=== PATIENT | male | born 1955 | race Caucasian/White ===

== ENCOUNTER → 2018-01-23 | Outpatient (REF) | payer OTHER, MEDICAID ==
[2018-01-23 13:49] LABS: MALB URINE SIEMENS 19.9 MG/L; MAU/CREAT RATIO 13.7 MCG/MG (0.0-30.0)
[2018-01-23 14:04] LABS: ALBUMIN 3.8 GM/DL (3.2-5.2); ALBUMIN/GLOBULIN RATIO 1.19 (1.00-1.93); ALKALINE PHOSPHATASE 122 U/L (45-117); ALT/SGPT 24 U/L (12-78); ANION GAP 6 MEQ/L (8-16); AST/SGOT 14 U/L (7-37); BILIRUBIN,TOTAL 0.5 MG/DL (0.2-1.0); BLOOD UREA NITROGEN 19 MG/DL (7-18); CALCIUM LEVEL 9.4 MG/DL (8.8-10.2); CARBON DIOXIDE LEVEL 29 MEQ/L (21-32); CHLORIDE LEVEL 103 MEQ/L (98-107); CHOLESTEROL LEVEL 223 MG/DL (<200); CHOLESTEROL RISK RATIO 4.372 (<5); CREATININE FOR GFR 1.09 MG/DL (0.70-1.30); GLOMERULAR FILTRATION RATE > 60.0 (>49); GLUCOSE, FASTING 394 MG/DL (70-100); HDL CHOLESTEROL 51 MG/DL (>40); NON-HDL-C 172 MG/DL; POTASSIUM SERUM 4.6 MEQ/L (3.5-5.1); SODIUM LEVEL 138 MEQ/L (136-145); TRIGLYCERIDES LEVEL 115 MG/DL (<150)
[2018-01-23 14:59] LABS: ESTIMATED AVERAGE GLUCOSE 301 MG/DL (60-110); HEMOGLOBIN A1c 12.1 %
== END ==
LOC: M LAB REF 12:15
DX: E11.9 Type 2 diabetes mellitus without complications (principal)

== ENCOUNTER 2018-06-03 11:05 | Emergency (ER) | payer OTHER, MEDICAID ==
[2018-06-03] MEDS: ONDANSETRON 4 MG ORAL DISINTEGRATING TAB (Q0162 PER 1MG) PO (11:41)
[2018-06-03] MEDS: MORPHINE 2 MG/ML 1ML SYRINGE (J2270) IM (11:43)
== END 2018-06-03 13:59 | disposition home or self-care (01) ==
LOC: M ED 11:05
DX: S79.911A Unspecified injury of right hip, initial encounter (principal); S89.91XA Unspecified injury of right lower leg, initial encounter; W01.0XXA Fall on same level from slipping, tripping and stumbling without subsequent striking against object, initial encounter; Y92.018 Other place in single-family (private) house as the place of occurrence of the external cause; E11.9 Type 2 diabetes mellitus without complications; F33.9 Major depressive disorder, recurrent, unspecified; Z95.5 Presence of coronary angioplasty implant and graft; Z88.0 Allergy status to penicillin; Z79.899 Other long term (current) drug therapy; Z79.82 Long term (current) use of aspirin; Z79.84 Long term (current) use of oral hypoglycemic drugs; Z87.891 Personal history of nicotine dependence
CPT/HCPCS: Q0162

== ENCOUNTER → 2018-12-22 | Outpatient (REF) | payer OTHER ==
[~2018-12-22] MED LIST: ASPI1CHW2 PO; ATOR1TAB21 PO; BASA100I SC; BIOFTAB PO; GLIP5TAB8 PO; INSUDET SC; INSUH10VL SC; INSULANT SC; MELO15TA28 PO; METF10004 PO; OMEP20CA3 PO; OMEP40CA2 PO; PERC5TAB12 PO; VITA-110 PO
== END ==
LOC: M LAB REF 10:13
PROVIDERS: ATTEND Otolaryngology
DX: D23.21 Other benign neoplasm of skin of right ear and external auricular canal (principal)

== ENCOUNTER 2018-12-25 11:51 | Day surgery (SDC) | payer OTHER ==
[~2018-12-25] VITALS: Ht 177.8 cm; Wt 82.5 kg
[~2018-12-25 11:51] MED LIST changes: +NS 1,000 ML IV ONE
[2018-12-25] MEDS ORDERED: PROPOFOL 200 MG/20 ML VIAL As Ordered ONE (13:39)
[2018-12-25] MEDS ORDERED: LIDOCAINE 2% INJ 100 MG/5 ML SDV (FOR ANES.) As Ordered ONE (13:55)
--- NOTE | 2018-12-25 14:25 | ROOR ---
Patient Name: Hira Oseguera Procedure Date: 12/25/2018 2:02 PM Date of : 1955 Age: 63 Room: [facility] Gender: Male Note Status: Finalized Procedure: Upper Endoscopy + Biopsies Indications: Heartburn, Exclusion of William's esophagus Providers: Hector Sanchez MD Referring MD: IVORY MCHUGH Requesting Provider: Medicines: Monitored Anesthesia Care Complications: No immediate complications. Procedure: Pre-Anesthesia Assessment: - The heart rate, respiratory rate, oxygen saturations, blood pressure, adequacy of pulmonary ventilation, and response to care were monitored throughout the procedure. The Endoscope was introduced through the mouth, and advanced to the second part of duodenum. The upper GI endoscopy was accomplished without difficulty. The patient tolerated the procedure well. Findings: The Z-line was irregular and was found 35 cm from the incisors. Multiple biopsies were obtained with cold forceps for evaluation to rule out William's Esophagus randomly at the gastroesophageal junction. A medium-sized hiatal hernia was present. Localized minimal inflammation characterized by congestion (edema) and erythema was found in the gastric antrum. Biopsies were taken with a cold forceps for Helicobacter pylori testing. The exam of the duodenum was otherwise normal. Impression: - Z-line irregular, 35 cm from the incisors. - Medium-sized hiatal hernia. - Mucosal changes suspicious for gastritis. Biopsied. - Multiple biopsies were obtained at the gastroesophageal junction. - The examination was otherwise normal. Recommendation: - Patient has a contact number available for emergencies. The signs and symptoms of potential delayed complications were discussed with the patient. Return to normal activities tomorrow. Written discharge instructions were provided to the patient. - High fiber diet. - Discharge patient to home. - Continue present medications. - Await pathology results. - Telephone GI clinic for pathology results in 1 week. - Return to referring physician. - The findings and recommendations were discussed with the patient's family. Hector Sanchez MD Hector Sanchez MD 12/25/2018 2:24:29 PM Electronically signed by Hector Sanchez MD Number of Addenda: 0 Note Initiated On: 12/25/2018 2:02 PM Estimated Blood Loss: Estimated blood loss: none.
[2018-12-25] MEDS ORDERED: PHENYLephrine HCL 500 MCG/5 ML (100MCG/ML) SYRINGE (J2370) As Ordered ONE (14:30)
--- NOTE | 2018-12-25 14:41 | ROOR ---
Patient Name: Hira Oseguera Procedure Date: 12/25/2018 2:04 PM Date of : 1955 Age: 63 Room: [facility] Gender: Male Note Status: Finalized Procedure: Total Colonoscopy to Cecum + Cold Snare Polypectomy Indications: Screening for colorectal malignant neoplasm Providers: Hector Sanchez MD Referring MD: IVORY MCHUGH Requesting Provider: Medicines: Monitored Anesthesia Care Complications: No immediate complications. Procedure: Pre-Anesthesia Assessment: - The heart rate, respiratory rate, oxygen saturations, blood pressure, adequacy of pulmonary ventilation, and response to care were monitored throughout the procedure. The Colonoscope was introduced through the anus and advanced to the cecum, identified by appendiceal orifice and ileocecal valve. The colonoscopy was performed without difficulty. The patient tolerated the procedure well. The quality of the bowel preparation was excellent. Findings: The perianal and digital rectal examinations were normal. Non-bleeding internal hemorrhoids were found during retroflexion. The hemorrhoids were small and Grade I (internal hemorrhoids that do not prolapse). A medium polyp was found at 20 cm proximal to the anus. The polyp was sessile. The polyp was removed with a cold snare. Resection and retrieval were complete. The exam was otherwise without abnormality on direct and retroflexion views. Impression: - Non-bleeding internal hemorrhoids. - One medium polyp at 20 cm proximal to the anus, removed with a cold snare. Resected and retrieved. - The examination was otherwise normal on direct and retroflexion views. - The exam was otherwise normal to the cecum. Recommendation: - Patient has a contact number available for emergencies. The signs and symptoms of potential delayed complications were discussed with the patient. Return to normal activities tomorrow. Written discharge instructions were provided to the patient. - High fiber diet. - Discharge patient to home. - Continue present medications. - Await pathology results. - Telephone GI clinic for pathology results in 1 week. - Repeat colonoscopy in 5 years for surveillance based on pathology results. - Return to referring physician. - The findings and recommendations were discussed with the patient's family. Hector Sanchez MD Hector Sanchez MD 12/25/2018 2:41:44 PM Electronically signed by Hector Sanchez MD Number of Addenda: 0 Note Initiated On: 12/25/2018 2:04 PM Estimated Blood Loss: Estimated blood loss: none.
[2018-12-25 15:15] VITALS: BP 127/77
== END 2018-12-25 15:20 | disposition home or self-care (01) ==
LOC: M OPP 11:51
PROVIDERS: ATTEND Internal Medicine Gastroenterology
DX: D12.6 Benign neoplasm of colon, unspecified (principal); K64.0 First degree hemorrhoids; K22.8 Other specified diseases of esophagus; K44.9 Diaphragmatic hernia without obstruction or gangrene; K31.89 Other diseases of stomach and duodenum; R12 Heartburn; Z12.11 Encounter for screening for malignant neoplasm of colon
CPT/HCPCS: 43239; 45385; 88305; J2370

== ENCOUNTER → 2019-01-11 | Outpatient (REF) | payer OTHER, MEDICAID ==
[~2019-01-11] MED LIST changes: -NS 1,000 ML IV ONE
[2019-01-11 13:50] LABS: HEMOGLOBIN A1c 8.5 %
[2019-01-11 14:06] LABS: ALBUMIN 4.2 GM/DL (3.2-5.2); ALT/SGPT 54 U/L (12-78); BILIRUBIN,TOTAL 0.5 MG/DL (0.2-1.0); BLOOD UREA NITROGEN 20 MG/DL (7-18); CARBON DIOXIDE LEVEL 29 MEQ/L (21-32); CHLORIDE LEVEL 104 MEQ/L (98-107); CHOLESTEROL LEVEL 156 MG/DL (<200); CREATININE FOR GFR 1.05 MG/DL (0.70-1.30); GLOMERULAR FILTRATION RATE > 60.0 (>49); GLUCOSE, FASTING 148 MG/DL (70-100); HDL CHOLESTEROL 52 MG/DL (>40); LDL CHOLESTEROL 86.2 MG/DL (<100); NON-HDL-C 104 MG/DL; POTASSIUM SERUM 4.7 MEQ/L (3.5-5.1); SODIUM LEVEL 138 MEQ/L (136-145); THYROID STIMULATING HORMONE 0.891 uIU/ML (0.358-3.740); TRIGLYCERIDES LEVEL 89 MG/DL (<150)
== END ==
LOC: M LAB REF 12:37
PROVIDERS: ATTEND Family Medicine Addiction Medicine
DX: Z12.11 Encounter for screening for malignant neoplasm of colon (principal); H93.8X1 Other specified disorders of right ear; E11.9 Type 2 diabetes mellitus without complications

== ENCOUNTER → 2019-01-11 | Outpatient (REF) | payer OTHER, MEDICAID ==
[2019-01-11 14:02] LABS: MALB URINE SIEMENS 18.4 MG/L; MAU/CREAT RATIO 13.2 MCG/MG (0.0-30.0)
== END ==
LOC: M LAB REF 12:48
PROVIDERS: ATTEND Family Medicine Addiction Medicine
DX: Z12.11 Encounter for screening for malignant neoplasm of colon (principal); E11.9 Type 2 diabetes mellitus without complications; H93.8X1 Other specified disorders of right ear

== ENCOUNTER → 2019-04-12 | Outpatient (REF) | payer OTHER, MEDICAID ==
[~2019-04-12] MED LIST changes: -OMEP20CA3 PO; +OMEP20CA4 PO
[2019-04-12 13:35] LABS: ALBUMIN 3.9 GM/DL (3.2-5.2); ALT/SGPT 43 U/L (12-78); BILIRUBIN,TOTAL 0.6 MG/DL (0.2-1.0); BLOOD UREA NITROGEN 24 MG/DL (7-18); CALCIUM LEVEL 9.7 MG/DL (8.8-10.2); CARBON DIOXIDE LEVEL 31 MEQ/L (21-32); CHLORIDE LEVEL 105 MEQ/L (98-107); CHOLESTEROL LEVEL 156 MG/DL (<200); CHOLESTEROL RISK RATIO 2.689 (<5); CREATININE FOR GFR 1.11 MG/DL (0.70-1.30); GLOMERULAR FILTRATION RATE > 60.0 (>49); GLUCOSE, FASTING 173 MG/DL (70-100); HDL CHOLESTEROL 58 MG/DL (>40); LDL CHOLESTEROL 84 MG/DL (<100); NON-HDL-C 98 MG/DL; SODIUM LEVEL 141 MEQ/L (136-145); TOTAL PROTEIN 7.1 GM/DL (6.4-8.2); TRIGLYCERIDES LEVEL 68 MG/DL (<150)
[2019-04-12 14:16] LABS: HEMOGLOBIN A1c 8.2 %
== END ==
LOC: M LAB REF 12:31
PROVIDERS: ATTEND Family Medicine Addiction Medicine
DX: E11.9 Type 2 diabetes mellitus without complications (principal)

== ENCOUNTER → 2019-06-19 | Outpatient (REF) | payer OTHER, MEDICAID ==
[2019-06-19 13:17] LABS: BASO % 0.6 % (0.0-1.0); EOS # 0.2 10^3/uL (0.0-0.5); EOS % 3.6 % (0.0-3.0); HEMATOCRIT 45.4 % (42.0-52.0); HEMOGLOBIN 15.5 g/dl (13.5-17.5); LYMPH # 1.9 10^3/uL (1.5-5.0); LYMPH % 28.6 % (24.0-44.0); MEAN CORPUSCULAR HEMOGLOBIN 32.3 pg (27.0-33.0); MEAN CORPUSCULAR HGB CONC 34.1 g/dl (32.0-36.5); MEAN CORPUSCULAR VOLUME 94.6 fl (80.0-96.0); MONO # 0.6 10^3/uL (0.0-0.8); MONO % 8.3 % (0.0-5.0); NEUTROPHILS # 3.9 10^3/uL (1.5-8.5); NEUTROPHILS % 58.3 % (36.0-66.0); PLATELET COUNT, AUTOMATED 214 10^3/uL (150-450); WHITE BLOOD COUNT 6.7 10^3/uL (4.0-10.0)
[2019-06-19 13:49] LABS: ALT/SGPT 53 U/L (12-78); BILIRUBIN,TOTAL 0.8 MG/DL (0.2-1.0); BLOOD UREA NITROGEN 17 MG/DL (7-18); CALCIUM LEVEL 9.6 MG/DL (8.8-10.2); CARBON DIOXIDE LEVEL 31 MEQ/L (21-32); CHLORIDE LEVEL 103 MEQ/L (98-107); CHOLESTEROL LEVEL 132 MG/DL (<200); CHOLESTEROL RISK RATIO 2.237 (<5); CREATININE FOR GFR 1.26 MG/DL (0.70-1.30); GLOMERULAR FILTRATION RATE > 60.0 (>49); GLUCOSE, FASTING 136 MG/DL (70-100); HDL CHOLESTEROL 59 MG/DL (>40); LDL CHOLESTEROL 61 MG/DL (<100); NON-HDL-C 73 MG/DL; POTASSIUM SERUM 4.8 MEQ/L (3.5-5.1); SODIUM LEVEL 140 MEQ/L (136-145); TOTAL 25(OH) VITAMIN D 42.4 NG/ML (30.0-100.0); TOTAL PROTEIN 7.2 GM/DL (6.4-8.2); TRIGLYCERIDES LEVEL 61 MG/DL (<150)
[2019-06-19 14:49] LABS: MALB URINE SIEMENS 13.2 MG/L
== END ==
LOC: M LAB REF 12:22
PROVIDERS: ATTEND Nurse Practitioner Family
DX: Z00.01 Encounter for general adult medical examination with abnormal findings (principal)

== ENCOUNTER → 2020-06-06 | Outpatient (REF) | payer OTHER, MEDICAID ==
[~2020-06-06] MED LIST changes: +OMEP1CAP73 PO; -OMEP20CA4 PO; -OMEP40CA2 PO; +OMEP40CA97 PO
[2020-06-06 13:57] LABS: CREATININE, URINE 63.8 MG/DL; MAU/CREAT RATIO 15.6 MCG/MG (0.0-30.0)
[2020-06-06 14:40] LABS: BASO % 0.4 % (0.0-1.0); EOS # 0.3 10^3/uL (0.0-0.5); EOS % 3.4 % (0.0-3.0); HEMATOCRIT 43.2 % (42.0-52.0); HEMOGLOBIN 14.9 g/dl (13.5-17.5); LYMPH % 25.8 % (24.0-44.0); MEAN CORPUSCULAR HEMOGLOBIN 32.7 pg (27.0-33.0); MEAN CORPUSCULAR HGB CONC 34.5 g/dl (32.0-36.5); MEAN CORPUSCULAR VOLUME 94.7 fl (80.0-96.0); MONO # 0.5 10^3/uL (0.0-0.8); MONO % 6.1 % (0.0-5.0); NEUTROPHILS # 4.9 10^3/uL (1.5-8.5); PLATELET COUNT, AUTOMATED 194 10^3/uL (150-450); RED BLOOD COUNT 4.56 10^6/uL (4.30-6.10); WHITE BLOOD COUNT 7.7 10^3/uL (4.0-10.0)
[2020-06-06 14:50] LABS: ALT/SGPT 66 U/L (12-78); BILIRUBIN,TOTAL 0.4 MG/DL (0.2-1.0); BLOOD UREA NITROGEN 18 MG/DL (7-18); CALCIUM LEVEL 9.6 MG/DL (8.8-10.2); CARBON DIOXIDE LEVEL 27 MEQ/L (21-32); CHLORIDE LEVEL 108 MEQ/L (98-107); CHOLESTEROL LEVEL 146 MG/DL (<200); CHOLESTEROL RISK RATIO 2.561 (<5); CREATININE FOR GFR 0.89 MG/DL (0.70-1.30); GLOMERULAR FILTRATION RATE > 60.0 (>49); GLUCOSE, FASTING 178 MG/DL (70-100); HDL CHOLESTEROL 57 MG/DL (>40); LDL CHOLESTEROL 70 MG/DL (<100); NON-HDL-C 89 MG/DL; POTASSIUM SERUM 4.7 MEQ/L (3.5-5.1); SODIUM LEVEL 140 MEQ/L (136-145); TOTAL PROTEIN 7.1 GM/DL (6.4-8.2); TRIGLYCERIDES LEVEL 93 MG/DL (<150)
== END ==
LOC: M LAB REF 12:22
PROVIDERS: ATTEND Physician Assistant
DX: E11.9 Type 2 diabetes mellitus without complications (principal)

== ENCOUNTER → 2020-08-29 | Outpatient (REF) | payer OTHER, MEDICAID ==
[2020-08-29 12:41] LABS: ALBUMIN 3.6 GM/DL (3.2-5.2); ALT/SGPT 55 U/L (12-78); BILIRUBIN,TOTAL 0.4 MG/DL (0.2-1.0); BLOOD UREA NITROGEN 19 MG/DL (7-18); CALCIUM LEVEL 9.4 MG/DL (8.8-10.2); CARBON DIOXIDE LEVEL 30 MEQ/L (21-32); CHLORIDE LEVEL 105 MEQ/L (98-107); CREATININE FOR GFR 0.95 MG/DL (0.70-1.30); GLOMERULAR FILTRATION RATE > 60.0 (>49); GLUCOSE, FASTING 169 MG/DL (70-100); POTASSIUM SERUM 4.7 MEQ/L (3.5-5.1); SODIUM LEVEL 141 MEQ/L (136-145); TOTAL PROTEIN 6.8 GM/DL (6.4-8.2)
[2020-08-29 13:29] LABS: HEMOGLOBIN A1c 7.7 %
== END ==
LOC: M LAB REF 11:12
PROVIDERS: ATTEND Physician Assistant
DX: E11.10 Type 2 diabetes mellitus with ketoacidosis without coma (principal)

== ENCOUNTER → 2021-01-02 | Outpatient (REF) | payer OTHER ==
[2021-01-02 12:38] LABS: ALBUMIN 4.1 GM/DL (3.2-5.2); ALT/SGPT 48 U/L (12-78); BILIRUBIN,TOTAL 0.9 MG/DL (0.2-1.0); BLOOD UREA NITROGEN 16 MG/DL (7-18); CALCIUM LEVEL 10.6 MG/DL (8.8-10.2); CARBON DIOXIDE LEVEL 29 MEQ/L (21-32); CHLORIDE LEVEL 103 MEQ/L (98-107); CHOLESTEROL LEVEL 129 MG/DL (<200); CHOLESTEROL RISK RATIO 2.303 (<5); CREATININE FOR GFR 0.84 MG/DL (0.70-1.30); GLOMERULAR FILTRATION RATE > 60.0 (>49); GLUCOSE, FASTING 188 MG/DL (70-100); HDL CHOLESTEROL 56 MG/DL (>40); LDL CHOLESTEROL 55 MG/DL (<100); MALB URINE SIEMENS 20.8 MG/L; MAU/CREAT RATIO 12.1 MCG/MG (0.0-30.0); NON-HDL-C 73 MG/DL; POTASSIUM SERUM 4.7 MEQ/L (3.5-5.1); SODIUM LEVEL 139 MEQ/L (136-145); TOTAL PROTEIN 6.9 GM/DL (6.4-8.2); TRIGLYCERIDES LEVEL 88 MG/DL (<150)
[2021-01-02 12:41] LABS: HEMOGLOBIN A1c 7.4 %
== END ==
LOC: M LAB REF 11:12
PROVIDERS: ATTEND Physician Assistant
DX: E11.65 Type 2 diabetes mellitus with hyperglycemia (principal)

== ENCOUNTER → 2021-02-25 | Outpatient (REF) | payer OTHER ==
[2021-02-25 16:55] LABS: BASO % 0.6 % (0.0-1.0); EOS # 0.4 10^3/uL (0.0-0.5); EOS % 5.6 % (0.0-3.0); HEMATOCRIT 44.8 % (42.0-52.0); HEMOGLOBIN 14.7 g/dl (13.5-17.5); LYMPH # 2.3 10^3/uL (1.5-5.0); LYMPH % 35.5 % (24.0-44.0); MEAN CORPUSCULAR HEMOGLOBIN 31.5 pg (27.0-33.0); MEAN CORPUSCULAR HGB CONC 32.8 g/dl (32.0-36.5); MEAN CORPUSCULAR VOLUME 95.9 fl (80.0-96.0); MONO # 0.6 10^3/uL (0.0-0.8); NEUTROPHILS # 3.2 10^3/uL (1.5-8.5); PLATELET COUNT, AUTOMATED 184 10^3/uL (150-450); RED BLOOD COUNT 4.67 10^6/uL (4.30-6.10); WHITE BLOOD COUNT 6.4 10^3/uL (4.0-10.0)
[2021-02-25 18:03] LABS: ALBUMIN 3.7 GM/DL (3.2-5.2); ALT/SGPT 54 U/L (12-78); BILIRUBIN,TOTAL 0.5 MG/DL (0.2-1.0); BLOOD UREA NITROGEN 18 MG/DL (7-18); CALCIUM LEVEL 9.5 MG/DL (8.8-10.2); CARBON DIOXIDE LEVEL 31 MEQ/L (21-32); CHLORIDE LEVEL 104 MEQ/L (98-107); CREATININE FOR GFR 0.82 MG/DL (0.70-1.30); GLOMERULAR FILTRATION RATE > 60.0 (>49); GLUCOSE, FASTING 204 MG/DL (70-100); POTASSIUM SERUM 4.9 MEQ/L (3.5-5.1); SODIUM LEVEL 140 MEQ/L (136-145); TOTAL PROTEIN 6.8 GM/DL (6.4-8.2)
[2021-02-25 20:49] LABS: HEMOGLOBIN A1c 7.1 %
== END ==
LOC: M LAB REF 16:14
PROVIDERS: ATTEND Physician Assistant
DX: E11.9 Type 2 diabetes mellitus without complications (principal)

== ENCOUNTER → 2021-04-07 | Outpatient (CLI) | payer OTHER ==
[~2021-04-07] MED LIST changes: +OMEP40CA4 PO; -OMEP40CA97 PO
--- NOTE | 2021-04-07 15:34 | REP ---
INDICATION: ANESTHESIA OF SKIN, HYPERLIPIDEMIA COMPARISON: None. TECHNIQUE: Real-time ultrasound evaluation and duplex Doppler interrogation of the extracranial carotid vasculature is performed. FINDINGS: There is mild plaquing and narrowing in both carotid bulbs extending into the internal and external carotid arteries. Luminal narrowing is less than 50%. There is no evidence of hemodynamically significant stenosis of either internal carotid artery. Normal flow velocities are seen. The vertebral arteries demonstrate normal direction of flow. RIGHT LEFT Peak systolic velocity ICA 70.6 cm/s 97.2 cm/s End diastolic velocity ICA 19.7 cm/s 29.3 cm/s Peak systolic velocity CCA 107.0 cm/s 126.0cm/s Peak systolic velocity ECA 118.0 cm/s 110.0 cm/s ICA/CCA ratio 0.66 0.77 IMPRESSION: Bilateral luminal narrowing of the internal carotid arteries less than 50%. No evidence of hemodynamically significant stenosis. <Electronically signed by Hugo Polanco > 04/07/21 [id number]
== END ==
LOC: M RAD 14:07
PROVIDERS: ATTEND Internal Medicine Cardiovascular Disease
DX: R20.0 Anesthesia of skin (principal); E78.5 Hyperlipidemia, unspecified; I65.23 Occlusion and stenosis of bilateral carotid arteries

== ENCOUNTER → 2021-07-09 | Outpatient (CLI) | payer OTHER ==
--- NOTE | 2021-07-09 08:20 | REP ---
INDICATION: CERVICALGIA COMPARISON: None. TECHNIQUE: AP, lateral, swimmer's and open-mouth views. FINDINGS: Alignment and lordosis is maintained. There is no evidence for acute fracture / compression injury or subluxation. No significant degenerative changes are appreciated. Open mouth view demonstrates normal C1-C2 articulation and odontoid process. IMPRESSION: Normal cervical spine series. <Electronically signed by Trae Corea > 07/09/21 [id number]
== END ==
LOC: M RAD 07:07
PROVIDERS: ATTEND Physician Assistant
DX: M54.2 Cervicalgia (principal)

== ENCOUNTER → 2021-08-20 | Outpatient (CLI) | payer OTHER ==
--- NOTE | 2021-08-20 08:17 | REP ---
INDICATION: PAIN IN LEFT SHOULDER COMPARISON: None. TECHNIQUE: Internal rotation, external rotation, and Y view. FINDINGS: Subtle spurring along the superior margin of the acromioclavicular joint noted. There is mild irregularity to the ossified glenoid rim. A small focus of calcification is identified adjacent to the humeral greater tuberosity. The subacromial space is normal. There is no evidence for acute fracture or dislocation. IMPRESSION: Relatively mild age-related arthritic changes. <Electronically signed by Trae Corea > 08/20/21 [id number]
== END ==
LOC: M RAD 07:32
PROVIDERS: ATTEND Pediatrics
DX: M25.512 Pain in left shoulder (principal); M75.92 Shoulder lesion, unspecified, left shoulder; M19.012 Primary osteoarthritis, left shoulder

== ENCOUNTER 2022-01-12 07:00 | Outpatient (RCR) | payer OTHER | END 2022-01-16 | LOC: M PT 07:00 | PROVIDERS: ATTEND Pediatrics | DX: M25.512 Pain in left shoulder (principal) ==

== ENCOUNTER 2022-02-09 07:00 | Outpatient (RCR) | payer OTHER | END 2022-02-16 | LOC: M PT 07:00 | PROVIDERS: ATTEND Pediatrics | DX: M25.512 Pain in left shoulder (principal) ==

== ENCOUNTER → 2022-08-28 | Outpatient (CLI) | payer OTHER ==
[2022-08-28 09:38] LABS: HEMATOCRIT 42.5 % (42.0-52.0); HEMOGLOBIN 14.6 g/dl (13.5-17.5); MEAN CORPUSCULAR HEMOGLOBIN 32.8 pg (27.0-33.0); MEAN CORPUSCULAR HGB CONC 34.4 g/dl (32.0-36.5); MEAN CORPUSCULAR VOLUME 95.5 fl (80.0-96.0); PLATELET COUNT, AUTOMATED 166 10^3/uL (150-450); RED BLOOD COUNT 4.45 10^6/uL (4.30-6.10); WHITE BLOOD COUNT 7.2 10^3/uL (4.0-10.0)
[2022-08-28 09:59] LABS: ALBUMIN 3.8 G/DL (3.2-5.2); BLOOD UREA NITROGEN 20 MG/DL (9-23); CARBON DIOXIDE LEVEL 27 MMOL/L (20-31); CHLORIDE LEVEL 104 MMOL/L (98-107); CHOLESTEROL LEVEL 128 MG/DL (<200); CREATININE FOR GFR 0.88 MG/DL (0.70-1.30); GLOMERULAR FILTRATION RATE > 60.0 (>49); GLUCOSE, FASTING 177 MG/DL (74-106); HDL CHOLESTEROL 51.2 MG/DL (>40); LDL CHOLESTEROL 63.8 MG/DL (<100); NON-HDL-C 77 MG/DL; PHOSPHORUS LEVEL 3.9 MG/DL (2.4-5.1); POTASSIUM SERUM 5.2 MMOL/L (3.5-5.1); SODIUM LEVEL 141 MMOL/L (136-145); TRIGLYCERIDES LEVEL 65 MG/DL (<150)
[2022-08-28 10:01] LABS: FERRITIN 233.3 NG/ML (10.5-307.3)
[2022-08-28 10:02] LABS: TOTAL 25(OH) VITAMIN D 58.1 NG/ML (20.0-100.0)
[2022-08-28 12:05] LABS: HEMOGLOBIN A1c 7.1 % (4.0-6.0)
== END ==
LOC: M LAB 08:19
PROVIDERS: ATTEND Physician Assistant
DX: Z00.8 Encounter for other general examination (principal); E78.5 Hyperlipidemia, unspecified; E11.9 Type 2 diabetes mellitus without complications; Z12.5 Encounter for screening for malignant neoplasm of prostate; D64.9 Anemia, unspecified

== ENCOUNTER → 2023-02-21 | Outpatient (CLI) | payer OTHER ==
[2023-02-21 08:01] LABS: BASO # 0.1 10^3/uL (0.0-0.2); BASO % 0.8 % (0.0-1.0); EOS # 0.4 10^3/uL (0.0-0.5); EOS % 5.8 % (0.0-3.0); HEMATOCRIT 43.9 % (42.0-52.0); HEMOGLOBIN 14.6 g/dl (13.5-17.5); LYMPH # 2.2 10^3/uL (1.5-5.0); LYMPH % 28.8 % (24.0-44.0); MEAN CORPUSCULAR HEMOGLOBIN 32.2 pg (27.0-33.0); MEAN CORPUSCULAR HGB CONC 33.3 g/dl (32.0-36.5); MEAN CORPUSCULAR VOLUME 96.9 fl (80.0-96.0); MONO # 0.7 10^3/uL (0.0-0.8); MONO % 8.7 % (2.0-8.0); NEUTROPHILS # 4.2 10^3/uL (1.5-8.5); NEUTROPHILS % 55.5 % (36.0-66.0); PLATELET COUNT, AUTOMATED 198 10^3/uL (150-450); RED BLOOD COUNT 4.53 10^6/uL (4.30-6.10); WHITE BLOOD COUNT 7.6 10^3/uL (4.0-10.0)
[2023-02-21 08:22] LABS: TOTAL 25(OH) VITAMIN D 51.8 NG/ML (20.0-100.0)
[2023-02-21 08:23] LABS: THYROID STIMULATING HORMONE 1.431 uIU/ML (0.55-4.78)
[2023-02-21 08:25] LABS: FREE T4 0.92 NG/DL (0.89-1.76)
[2023-02-21 08:32] LABS: ALBUMIN 3.7 G/DL (3.2-5.2); ALKALINE PHOSPHATASE 100 U/L (46-116); ALT/SGPT 62 U/L (7.0-40); AST/SGOT 38 U/L (<34); BILIRUBIN,TOTAL 0.7 MG/DL (0.3-1.2); BLOOD UREA NITROGEN 21 MG/DL (9-23); CARBON DIOXIDE LEVEL 29 MMOL/L (20-31); CHLORIDE LEVEL 105 MMOL/L (98-107); CHOLESTEROL LEVEL 131 MG/DL (<200); CHOLESTEROL RISK RATIO 2.74 (<5); CREATININE FOR GFR 0.88 MG/DL (0.70-1.30); GLOMERULAR FILTRATION RATE > 60.0 (>49); GLUCOSE, FASTING 194 MG/DL (74-106); HDL CHOLESTEROL 47.7 MG/DL (>40); LDL CHOLESTEROL 59.7 MG/DL (<100); NON-HDL-C 83.3 MG/DL; POTASSIUM SERUM 4.9 MMOL/L (3.5-5.1); SODIUM LEVEL 140 MMOL/L (136-145); TOTAL PROTEIN 6.3 G/DL (5.7-8.2); TRIGLYCERIDES LEVEL 118 MG/DL (<150)
== END ==
LOC: M LAB 07:14
PROVIDERS: ATTEND Physician Assistant
DX: I10 Essential (primary) hypertension (principal); D64.9 Anemia, unspecified; R53.83 Other fatigue; E78.5 Hyperlipidemia, unspecified; E55.9 Vitamin D deficiency, unspecified

== ENCOUNTER → 2023-05-28 | Outpatient (CLI) | payer OTHER ==
[2023-05-28 09:12] LABS: HEMATOCRIT 41.2 % (42.0-52.0); HEMOGLOBIN 14.1 g/dl (13.5-17.5); MEAN CORPUSCULAR HEMOGLOBIN 32.9 pg (27.0-33.0); MEAN CORPUSCULAR HGB CONC 34.2 g/dl (32.0-36.5); PLATELET COUNT, AUTOMATED 182 10^3/uL (150-450); RED BLOOD COUNT 4.29 10^6/uL (4.30-6.10); WHITE BLOOD COUNT 8.3 10^3/uL (4.0-10.0)
[2023-05-28 09:57] LABS: ALBUMIN 3.6 G/DL (3.2-5.2); ALKALINE PHOSPHATASE 72 U/L (46-116); ALT/SGPT 95 U/L (7.0-40); AST/SGOT 48 U/L (<34); BILIRUBIN,TOTAL 0.8 MG/DL (0.3-1.2); BLOOD UREA NITROGEN 15 MG/DL (9-23); CALCIUM LEVEL 9.6 MG/DL (8.3-10.6); CARBON DIOXIDE LEVEL 31 MMOL/L (20-31); CHLORIDE LEVEL 105 MMOL/L (98-107); CHOLESTEROL LEVEL 123 MG/DL (<200); CREATININE FOR GFR 0.81 MG/DL (0.70-1.30); GLOMERULAR FILTRATION RATE > 60.0 (>49); GLUCOSE, FASTING 114 MG/DL (74-106); POTASSIUM SERUM 4.8 MMOL/L (3.5-5.1); SODIUM LEVEL 140 MMOL/L (136-145); THYROID STIMULATING HORMONE 1.134 uIU/ML (0.55-4.78); THYROXINE (T4) 7.4 UG/DL (4.5-10.9); TOTAL 25(OH) VITAMIN D 57.2 NG/ML (20.0-100.0); TOTAL PROTEIN 6.5 G/DL (5.7-8.2); TRIGLYCERIDES LEVEL 58 MG/DL (<150)
[2023-05-28 10:49] LABS: CHOLESTEROL RISK RATIO 2.25 (<5); HDL CHOLESTEROL 54.6 MG/DL (>40); LDL CHOLESTEROL 56.8 MG/DL (<100); NON-HDL-C 68.4 MG/DL
== END ==
LOC: M LAB 08:05
PROVIDERS: ATTEND Nurse Practitioner Adult Health
DX: D50.9 Iron deficiency anemia, unspecified (principal); I10 Essential (primary) hypertension; E78.5 Hyperlipidemia, unspecified; R53.83 Other fatigue; E55.9 Vitamin D deficiency, unspecified

== ENCOUNTER 2023-08-08 13:02 | Inpatient (IN) | payer OTHER ==
[~2023-08-08] VITALS: Ht 177.8 cm; Wt 88.0 kg
[~2023-08-08 13:02] MED LIST changes: +GLIP5TAB17 PO; -GLIP5TAB8 PO
[2023-08-08 14:05] LABS: VENOUS BASE EXCESS 1.1 (-2.0-2.0); VENOUS HCO3 26.2 MMOL/L (23.0-27.0); VENOUS O2 SATURATION 84.4 % (60.0-80.0); VENOUS PARTIAL PRESSURE CO2 43.2 mmHg (38.0-50.0); VENOUS PARTIAL PRESSURE O2 48.3 mmHg (30.0-50.0); VENOUS STANDARD HCO3 25.1 MMOL/L; VENOUS TOTAL CO2 27.5 MMOL/L (24.0-28.0)
[2023-08-08 14:08] LABS: BASO % 0.1 % (0.0-1.0); HEMOGLOBIN 15.5 g/dl (13.5-17.5); LYMPH # 0.9 10^3/uL (1.5-5.0); LYMPH % 8.8 % (24.0-44.0); MEAN CORPUSCULAR HEMOGLOBIN 33.4 pg (27.0-33.0); MEAN CORPUSCULAR HGB CONC 35.2 g/dl (32.0-36.5); MEAN CORPUSCULAR VOLUME 94.8 fl (80.0-96.0); MONO # 0.3 10^3/uL (0.0-0.8); MONO % 3.2 % (2.0-8.0); NEUTROPHILS % 87.5 % (36.0-66.0); PLATELET COUNT, AUTOMATED 198 10^3/uL (150-450); RED BLOOD COUNT 4.64 10^6/uL (4.30-6.10); WHITE BLOOD COUNT 10.2 10^3/uL (4.0-10.0)
[2023-08-08] MEDS ORDERED: NS 2,000 ML in IV 1 EA IV ONE (14:20)
[2023-08-08 14:23] LABS: ETHYL ALCOHOL (ETHANOL) < 0.003 % (0.000-0.010)
[2023-08-08 14:25] LABS: SALICYLATE LEVEL < 3.0 MG/DL (<30)
[2023-08-08 14:26] LABS: ALKALINE PHOSPHATASE 70 U/L (46-116); ALT/SGPT 89 U/L (7.0-40); AST/SGOT 66 U/L (<34); BILIRUBIN,DIRECT 0.3 MG/DL (<0.4); BILIRUBIN,TOTAL 0.8 MG/DL (0.3-1.2); BLOOD UREA NITROGEN 18 MG/DL (9-23); CALCIUM LEVEL 9.6 MG/DL (8.3-10.6); CARBON DIOXIDE LEVEL 25 MMOL/L (20-31); CHLORIDE LEVEL 99 MMOL/L (98-107); CK-MB VALUE MASS 1.4 NG/ML (<3.6); CREATININE FOR GFR 0.71 MG/DL (0.70-1.30); GLOMERULAR FILTRATION RATE > 60.0 (>49); GLUCOSE, FASTING 231 MG/DL (74-106); POTASSIUM SERUM 4.5 MMOL/L (3.5-5.1); SODIUM LEVEL 135 MMOL/L (136-145)
[2023-08-08 14:28] LABS: CPK CREATINE PHOSPHOKINASE 140 U/L (46-171); OSMOLALITY SERUM 301 MOSM/KG (280-301); THYROID STIMULATING HORMONE 1.167 uIU/ML (0.55-4.78)
[2023-08-08 14:57] LABS: MAGNESIUM LEVEL 1.6 MG/DL (1.8-2.4)
[2023-08-08 17:00] LABS: CK-MB VALUE MASS 1.3 NG/ML (<3.6)
[2023-08-08] MEDS ORDERED: MAG SULF 1GM/100ML (MAG RUN) 1 GM in IV 1 EA IV SCH (17:00)
[2023-08-08 17:03] LABS: MB/CK RELATIVE INDEX 0.63 (< OR =4)
[2023-08-08] MEDS: DOBUTamine HCL 500,000 MCG in IV 1 EA IV SCH ×3 (17:35→19:46)
[2023-08-08 18:13] LABS: AMPHETAMINES LEVEL URINE NEGATIVE (NEGATIVE); BARBITURATES URINE NEGATIVE (NEGATIVE); BENZODIAZEPINES URINE NEGATIVE (NEGATIVE); COCAINE METABOLITE URINE NEGATIVE (NEGATIVE); METHADONE URINE NEGATIVE (NEGATIVE); OPIATES URINE NEGATIVE (NEGATIVE); PHENCYCLIDINE URINE NEGATIVE (NEGATIVE)
[2023-08-08] MEDS ORDERED: MED REC IN PROGRESS XX SCH (18:15)
[2023-08-08 18:26] LABS: CANNABINOIDS URINE POSITIVE (NEGATIVE)
[2023-08-08] MEDS ORDERED: DEXTROSE 50% 50ML SYRINGE IV PRN (18:30)
[2023-08-08] MEDS ORDERED: GLUCOSE 4GM CHEW TABLET PO PRN (18:30)
[2023-08-08] MEDS ORDERED: GLUCAGON INJ 1MG VIAL SC PRN (18:30)
[2023-08-08] MEDS ORDERED: OMEPRAZOLE 20MG CAP PO ONE (18:35)
[2023-08-08] MEDS ORDERED: VITA100093 PO (19:07)
[2023-08-08] MEDS ORDERED: ATOR80TA59 PO (19:07)
[2023-08-08] MEDS ORDERED: D3 S20002 PO (19:07)
[2023-08-08] MEDS ORDERED: METF750T36 PO (19:11)
[2023-08-08] MEDS ORDERED: OMEP40CA5 PO (19:11)
[2023-08-08] MEDS ORDERED: TRUL0.5I IM (19:13)
[2023-08-08] MEDS ORDERED: RAMI1CAP24 PO (19:13)
[2023-08-08] MEDS ORDERED: RA M500C PO (19:14)
[2023-08-08] MEDS ORDERED: VITMTA PO (19:15)
[2023-08-08] MEDS ORDERED: TUMS750C5 PO (19:16)
[2023-08-08] MEDS ORDERED: HOME MED LIST COMPLETE! XX SCH (19:20)
[2023-08-08] MEDS: LR 1,000 ML IV SCH (19:46)
[2023-08-08 20:05] VITALS: BP 119/63; TEMP 99.9; O2SAT 97
[2023-08-08 21:00] VITALS: BP 112/82; O2SAT 95
[2023-08-08] MEDS ORDERED: INSULIN LISPRO (NovoLOG) PER UNIT SC SCH (21:00)
[2023-08-08] MEDS ORDERED: DOBUTamine HCL 500,000 MCG in IV 1 EA IV SCH (22:20)
[2023-08-08 22:30] VITALS: BP 136/62; O2SAT 95
[2023-08-08 23:00] VITALS: BP 132/64; O2SAT 95
[2023-08-09] VITALS (17 sets, daily range): BP systolic 96–150; BP diastolic 51–88; TEMP 97.3–99.1; O2SAT 94–97
[2023-08-09 04:41] LABS: CK-MB VALUE MASS < 1.0 NG/ML (<3.6)
[2023-08-09 04:42] LABS: CPK CREATINE PHOSPHOKINASE 253 U/L (46-171); MB/CK RELATIVE INDEX 0.39 (< OR =4)
[2023-08-09] MEDS ORDERED: LORazepam 2 MG TAB PO PRN (05:15)
[2023-08-09] MEDS: LR 1,000 ML IV SCH (07:25)
[2023-08-09] MEDS ORDERED: INSULIN LISPRO (NovoLOG) PER UNIT SC SCH (07:30)
[2023-08-09] MEDS ORDERED: MULTIVITAMINS/MINERALS THERAP 1 TAB PO SCH (09:00)
[2023-08-09] MEDS ORDERED: ASPIRIN 81MG CHEW TABLET PO SCH (09:00)
[2023-08-09] MEDS ORDERED: ATORVASTATIN 20 MG TAB PO SCH (09:00)
[2023-08-09] MEDS ORDERED: MAGNESIUM OXIDE 400MG TAB (MAG-OX) PO SCH (09:00)
[2023-08-09] MEDS ORDERED: VITAMIN D 1,000 INTERNATIONAL UNITS TABLET PO SCH (09:00)
[2023-08-09] MEDS ORDERED: ramipriL 5 MG CAP PO SCH (09:00)
[2023-08-09] MEDS ORDERED: THIAMINE 100 MG TAB PO SCH (09:00)
[2023-08-09] MEDS ORDERED: FOLIC ACID 1MG TAB PO SCH (09:00)
[2023-08-09] MEDS ORDERED: OMEPRAZOLE 20MG CAP PO SCH (09:00)
[2023-08-09] MEDS ORDERED: LIDOCAINE 1% MDV 20ML VIAL As Ordered ONE (09:14)
[2023-08-09] MEDS ORDERED: ISOVUE-300 61% 100ML VIAL As Ordered ONE (09:14)
[2023-08-09] MEDS ORDERED: AMIODARONE 150MG/3ML VIAL As Ordered ONE (09:15)
[2023-08-09] MEDS ORDERED: MIDAZOLAM INJ 2MG/2ML VIAL As Ordered ONE ×2 (10:08→10:56)
[2023-08-09] MEDS ORDERED: fentaNYL 100 MCG/2 ML INJECTION As Ordered ONE (10:08)
[2023-08-09] MEDS ORDERED: propofoL 200 MG/20 ML VIAL As Ordered ONE (10:08)
[2023-08-09] MEDS ORDERED: LIDOCAINE 2% 100MG/5ML SDV (FOR ANES.) As Ordered ONE (10:12)
[2023-08-09] MEDS ORDERED: ONDANSETRON 4MG 2ML VIAL As Ordered ONE (10:13)
[2023-08-09] MEDS ORDERED: ceFAZolin 2 GM/D5W 50 ML IV BAG As Ordered ONE (10:39)
[2023-08-09] MEDS ORDERED: PHENYLephrine 500MCG 5ML (100MCG/ML) SYRINGE As Ordered ONE (11:31)
[2023-08-09] MEDS ORDERED: ceFAZolin SOD 2 GM in IV 1 EA IV ONE (12:00)
[2023-08-09] MEDS ORDERED: HYDROMORPHONE HCL 0.5 MG/ 0.5 ML SYRINGE IV PRN (12:20)
[2023-08-09] MEDS ORDERED: fentaNYL 100 MCG/2 ML INJECTION IV PRN (12:20)
[2023-08-09] MEDS ORDERED: oxyCODONE 5MG TAB PO PRN (12:20)
[2023-08-09] MEDS ORDERED: ONDANSETRON 4MG 2ML VIAL IV PRN (12:20)
[2023-08-09] MEDS ORDERED: CALCIUM CARBONATE 500 MG CHEW U/D PO PRN (12:25)
[2023-08-09] MEDS ORDERED: ACETAMINOPHEN TAB 650MG DOSE (2X325MG) PO PRN (12:45)
[2023-08-09] MEDS ORDERED: traMADol 50 MG TAB PO PRN (12:45)
[2023-08-09] MEDS ORDERED: ceFAZolin SOD 1 GM in D5W MINI-BAG PLUS 50 ML IV ONE (18:00)
[2023-08-10] MEDS ORDERED: glipiZIDE (GLUCOTROL) 5 MG TAB PO SCH (09:00)
[2023-08-10] MEDS ORDERED: LEVEMIR (INSULIN DETEMIR) 1 UNITS/0.01ML SC SCH (09:00)
== END 2023-08-09 18:35 | disposition home or self-care (01) | DRG 171 ==
LOC: M ED 13:02 → M ED INP 18:04 → M ICU 20:10 → OBSVTOIN 08-09 08:50
PROVIDERS: ADMIT Internal Medicine Cardiovascular Disease; ATTEND Internal Medicine Cardiovascular Disease
PROC: 02HK3JZ Insertion of Pacemaker Lead into Right Ventricle, Percutaneous Approach (ICD-10-PCS; 2023-08-09)
PROC: 02H63JZ Insertion of Pacemaker Lead into Right Atrium, Percutaneous Approach (ICD-10-PCS; 2023-08-09)
PROC: 0JH606Z Insertion of Pacemaker, Dual Chamber into Chest Subcutaneous Tissue and Fascia, Open Approach (ICD-10-PCS; principal; 2023-08-09 10:30)
DX: I45.5 Other specified heart block (principal); E11.42 Type 2 diabetes mellitus with diabetic polyneuropathy; I11.9 Hypertensive heart disease without heart failure; R55 Syncope and collapse; K21.9 Gastro-esophageal reflux disease without esophagitis; F10.20 Alcohol dependence, uncomplicated; I25.10 Atherosclerotic heart disease of native coronary artery without angina pectoris; Z95.5 Presence of coronary angioplasty implant and graft; Z79.82 Long term (current) use of aspirin; Z79.84 Long term (current) use of oral hypoglycemic drugs; Z79.4 Long term (current) use of insulin; Z79.899 Other long term (current) drug therapy; Z88.0 Allergy status to penicillin; Z20.822 Contact with and (suspected) exposure to COVID-19

== ENCOUNTER → 2023-08-19 | Outpatient (CLI) | payer OTHER ==
[~2023-08-19] MED LIST changes: +ATOR80TA59 PO; +D3 S20002 PO; +METF750T36 PO; +OMEP40CA5 PO; +RA M500C PO; +RAMI1CAP24 PO; +TRUL0.5I IM; +TUMS750C5 PO; +VITA100093 PO; +VITMTA PO
[2023-08-19 08:15] LABS: HEMATOCRIT 41.4 % (42.0-52.0); HEMOGLOBIN 14.3 g/dl (13.5-17.5); MEAN CORPUSCULAR HEMOGLOBIN 33.3 pg (27.0-33.0); MEAN CORPUSCULAR HGB CONC 34.5 g/dl (32.0-36.5); MEAN CORPUSCULAR VOLUME 96.5 fl (80.0-96.0); PLATELET COUNT, AUTOMATED 188 10^3/uL (150-450); RED BLOOD COUNT 4.29 10^6/uL (4.30-6.10); WHITE BLOOD COUNT 7.3 10^3/uL (4.0-10.0)
[2023-08-19 08:37] LABS: ALBUMIN 3.4 G/DL (3.2-5.2); ALKALINE PHOSPHATASE 77 U/L (46-116); ALT/SGPT 86 U/L (7.0-40); AST/SGOT 46 U/L (<34); BILIRUBIN,TOTAL 0.6 MG/DL (0.3-1.2); BLOOD UREA NITROGEN 17 MG/DL (9-23); CALCIUM LEVEL 9.3 MG/DL (8.3-10.6); CARBON DIOXIDE LEVEL 29 MMOL/L (20-31); CHLORIDE LEVEL 106 MMOL/L (98-107); CHOLESTEROL LEVEL 132 MG/DL (<200); CHOLESTEROL RISK RATIO 2.98 (<5); GLOMERULAR FILTRATION RATE > 60.0 (>49); GLUCOSE, FASTING 185 MG/DL (74-106); HDL CHOLESTEROL 44.2 MG/DL (>40); LDL CHOLESTEROL 74.6 MG/DL (<100); NON-HDL-C 87.8 MG/DL; POTASSIUM SERUM 4.9 MMOL/L (3.5-5.1); SODIUM LEVEL 143 MMOL/L (136-145); TOTAL PROTEIN 6.2 G/DL (5.7-8.2); TRIGLYCERIDES LEVEL 66 MG/DL (<150)
[2023-08-19 08:39] LABS: FREE T4 1.02 NG/DL (0.89-1.76); THYROID STIMULATING HORMONE 1.207 uIU/ML (0.55-4.78)
== END ==
LOC: M LAB 07:27
PROVIDERS: ATTEND Nurse Practitioner Adult Health
DX: D50.9 Iron deficiency anemia, unspecified (principal); I10 Essential (primary) hypertension; E78.5 Hyperlipidemia, unspecified; R53.83 Other fatigue; E55.9 Vitamin D deficiency, unspecified

== ENCOUNTER → 2024-01-31 | Outpatient (CLI) | payer MEDICARE ==
[~2024-01-31] MED LIST changes: -RAMI1CAP24 PO; +RAMI5CAP60 PO
[2024-01-31 07:57] LABS: HEMATOCRIT 39.9 % (42.0-52.0); HEMOGLOBIN 13.9 g/dl (13.5-17.5); MEAN CORPUSCULAR HEMOGLOBIN 33.7 pg (27.0-33.0); MEAN CORPUSCULAR HGB CONC 34.8 g/dl (32.0-36.5); MEAN CORPUSCULAR VOLUME 96.6 fl (80.0-96.0); PLATELET COUNT, AUTOMATED 173 10^3/uL (150-450); RED BLOOD COUNT 4.13 10^6/uL (4.30-6.10); WHITE BLOOD COUNT 7.1 10^3/uL (4.0-10.0)
[2024-01-31 08:28] LABS: ALBUMIN 3.3 G/DL (3.2-5.2); ALKALINE PHOSPHATASE 93 U/L (46-116); ALT/SGPT 89 U/L (7.0-40); AST/SGOT 55 U/L (<34); BILIRUBIN,TOTAL 0.5 MG/DL (0.3-1.2); BLOOD UREA NITROGEN 19 MG/DL (9-23); CALCIUM LEVEL 9.5 MG/DL (8.3-10.6); CARBON DIOXIDE LEVEL 27 MMOL/L (20-31); CHLORIDE LEVEL 105 MMOL/L (98-107); CHOLESTEROL LEVEL 138 MG/DL (<200); CHOLESTEROL RISK RATIO 2.71 (<5); CREATININE FOR GFR 0.84 MG/DL (0.70-1.30); GLOMERULAR FILTRATION RATE > 60.0 (>49); GLUCOSE, FASTING 210 MG/DL (74-106); HDL CHOLESTEROL 50.8 MG/DL (>40); LDL CHOLESTEROL 67.6 MG/DL (<100); NON-HDL-C 87.2 MG/DL; POTASSIUM SERUM 4.5 MMOL/L (3.5-5.1); SODIUM LEVEL 141 MMOL/L (136-145); TRIGLYCERIDES LEVEL 98 MG/DL (<150)
[2024-01-31 08:29] LABS: FREE T4 0.99 NG/DL (0.89-1.76); THYROID STIMULATING HORMONE 1.748 uIU/ML (0.55-4.78)
[2024-01-31 08:41] LABS: HEMOGLOBIN A1c 7.6 % (4.0-6.0)
== END ==
LOC: M LAB 06:45
PROVIDERS: ATTEND Nurse Practitioner Adult Health
DX: E11.9 Type 2 diabetes mellitus without complications (principal); K21.9 Gastro-esophageal reflux disease without esophagitis; E78.5 Hyperlipidemia, unspecified; I10 Essential (primary) hypertension; E55.9 Vitamin D deficiency, unspecified; Z12.5 Encounter for screening for malignant neoplasm of prostate; Z79.899 Other long term (current) drug therapy

== ENCOUNTER → 2024-04-30 | Outpatient (CLI) | payer MEDICARE, OTHER | LOC: M LAB 07:32 | PROVIDERS: ATTEND Internal Medicine Cardiovascular Disease | DX: R06.09 Other forms of dyspnea (principal) ==

== ENCOUNTER → 2024-05-15 | Outpatient (CLI) | payer OTHER ==
[2024-05-15 07:37] LABS: HEMATOCRIT 41.6 % (42.0-52.0); HEMOGLOBIN 14.3 g/dl (13.5-17.5); MEAN CORPUSCULAR HEMOGLOBIN 33.3 pg (27.0-33.0); MEAN CORPUSCULAR HGB CONC 34.4 g/dl (32.0-36.5); MEAN CORPUSCULAR VOLUME 96.7 fl (80.0-96.0); PLATELET COUNT, AUTOMATED 172 10^3/uL (150-450); WHITE BLOOD COUNT 7.2 10^3/uL (4.0-10.0)
[2024-05-15 08:09] LABS: ALBUMIN 3.7 G/DL (3.2-5.2); ALKALINE PHOSPHATASE 90 U/L (46-116); ALT/SGPT 93 U/L (7.0-40); AST/SGOT 58 U/L (<34); BILIRUBIN,TOTAL 0.6 MG/DL (0.3-1.2); BLOOD UREA NITROGEN 14 MG/DL (9-23); CALCIUM LEVEL 9.8 MG/DL (8.3-10.6); CARBON DIOXIDE LEVEL 32 MMOL/L (20-31); CHLORIDE LEVEL 106 MMOL/L (98-107); CHOLESTEROL LEVEL 132 MG/DL (<200); CHOLESTEROL RISK RATIO 3.06 (<5); CREATININE FOR GFR 0.86 MG/DL (0.70-1.30); GLOMERULAR FILTRATION RATE > 60.0 (>49); GLUCOSE, FASTING 170 MG/DL (74-106); LDL CHOLESTEROL 68.6 MG/DL (<100); POTASSIUM SERUM 5.6 MMOL/L (3.5-5.1); SODIUM LEVEL 142 MMOL/L (136-145); TOTAL PROTEIN 6.6 G/DL (5.7-8.2); TRIGLYCERIDES LEVEL 102 MG/DL (<150)
[2024-05-15 08:21] LABS: HEMOGLOBIN A1c 9.1 % (4.0-6.0)
== END ==
LOC: M LAB 07:12
PROVIDERS: ATTEND Nurse Practitioner Adult Health
DX: E11.9 Type 2 diabetes mellitus without complications (principal); K21.9 Gastro-esophageal reflux disease without esophagitis; Z79.899 Other long term (current) drug therapy

== ENCOUNTER → 2024-07-27 | Outpatient (CLI) | payer OTHER ==
[2024-07-27 07:39] LABS: HEMATOCRIT 40.7 % (42.0-52.0); HEMOGLOBIN 14.1 g/dl (13.5-17.5); MEAN CORPUSCULAR HEMOGLOBIN 32.9 pg (27.0-33.0); MEAN CORPUSCULAR HGB CONC 34.6 g/dl (32.0-36.5); MEAN CORPUSCULAR VOLUME 95.1 fl (80.0-96.0); PLATELET COUNT, AUTOMATED 188 10^3/uL (150-450); RED BLOOD COUNT 4.28 10^6/uL (4.30-6.10); WHITE BLOOD COUNT 6.4 10^3/uL (4.0-10.0)
[2024-07-27 08:00] LABS: HEMOGLOBIN A1c 9.3 % (4.0-6.0)
[2024-07-27 08:05] LABS: ALBUMIN 3.6 G/DL (3.2-5.2); ALKALINE PHOSPHATASE 76 U/L (40-129); ALT/SGPT 81 U/L (7.0-40); AST/SGOT 48 U/L (<34); BILIRUBIN,TOTAL 0.6 MG/DL (0.3-1.2); BLOOD UREA NITROGEN 12 MG/DL (9-23); CALCIUM LEVEL 9.6 MG/DL (8.3-10.6); CARBON DIOXIDE LEVEL 30 MMOL/L (20-31); CHLORIDE LEVEL 108 MMOL/L (98-107); CHOLESTEROL LEVEL 126 MG/DL (<200); CREATININE FOR GFR 0.84 MG/DL (0.70-1.30); GLOMERULAR FILTRATION RATE > 60.0 (>49); GLUCOSE, FASTING 185 MG/DL (74-106); HDL CHOLESTEROL 48.4 MG/DL (>40); LDL CHOLESTEROL 65.4 MG/DL (<100); NON-HDL-C 77.6 MG/DL; POTASSIUM SERUM 4.6 MMOL/L (3.5-5.1); SODIUM LEVEL 141 MMOL/L (136-145); TOTAL PROTEIN 6.4 G/DL (5.7-8.2); TRIGLYCERIDES LEVEL 61 MG/DL (<150)
[2024-07-27 08:06] LABS: THYROID STIMULATING HORMONE 1.098 uIU/ML (0.55-4.78)
[2024-07-27 08:07] LABS: FREE T4 1.22 NG/DL (0.89-1.76)
== END ==
LOC: M LAB 07:05
PROVIDERS: ATTEND Nurse Practitioner Adult Health
DX: E11.9 Type 2 diabetes mellitus without complications (principal); E55.9 Vitamin D deficiency, unspecified; K21.9 Gastro-esophageal reflux disease without esophagitis; E78.5 Hyperlipidemia, unspecified; Z79.899 Other long term (current) drug therapy

== ENCOUNTER → 2025-01-22 | Outpatient (CLI) | payer MEDICARE ==
[2025-01-22 07:46] LABS: HEMATOCRIT 40.5 % (42.0-52.0); HEMOGLOBIN 13.9 g/dl (13.5-17.5); MEAN CORPUSCULAR HEMOGLOBIN 32.7 pg (27.0-33.0); MEAN CORPUSCULAR HGB CONC 34.3 g/dl (32.0-36.5); MEAN CORPUSCULAR VOLUME 95.3 fl (80.0-96.0); PLATELET COUNT, AUTOMATED 173 10^3/uL (150-450); RED BLOOD COUNT 4.25 10^6/uL (4.30-6.10); WHITE BLOOD COUNT 6.6 10^3/uL (4.0-10.0)
[2025-01-22 08:01] LABS: HEMOGLOBIN A1c 9.2 % (4.0-6.0)
[2025-01-22 08:20] LABS: ALBUMIN 3.3 G/DL (3.2-5.2); ALKALINE PHOSPHATASE 101 U/L (40-129); ALT/SGPT 65 U/L (7.0-40); AST/SGOT 41 U/L (<34); BILIRUBIN,TOTAL 0.5 MG/DL (0.3-1.2); BLOOD UREA NITROGEN 24 MG/DL (9-23); CALCIUM LEVEL 9.4 MG/DL (8.3-10.6); CARBON DIOXIDE LEVEL 31 MMOL/L (20-31); CHLORIDE LEVEL 104 MMOL/L (98-107); CHOLESTEROL LEVEL 157 MG/DL (<200); CHOLESTEROL RISK RATIO 3.03 (<5); GLOMERULAR FILTRATION RATE > 90.0 (>49); GLUCOSE, FASTING 268 MG/DL (74-106); HDL CHOLESTEROL 51.7 MG/DL (>40); LDL CHOLESTEROL 87.3 MG/DL (<100); NON-HDL-C 105.3 MG/DL; POTASSIUM SERUM 4.9 MMOL/L (3.5-5.1); SODIUM LEVEL 142 MMOL/L (136-145); TOTAL PROTEIN 6.1 G/DL (5.7-8.2); TRIGLYCERIDES LEVEL 90 MG/DL (<150)
[2025-01-22 08:23] LABS: FREE T4 1.06 NG/DL (0.89-1.76); THYROID STIMULATING HORMONE 0.839 uIU/ML (0.55-4.78)
== END ==
LOC: M LAB 07:04
PROVIDERS: ATTEND Internal Medicine Cardiovascular Disease
DX: I10 Essential (primary) hypertension (principal); E11.9 Type 2 diabetes mellitus without complications; E78.5 Hyperlipidemia, unspecified; R53.83 Other fatigue

== ENCOUNTER → 2025-03-27 | Outpatient (CLI) | payer MEDICARE ==
[2025-03-27 08:16] LABS: PLATELET COUNT, AUTOMATED 174 10^3/uL (150-450)
[2025-03-27 08:47] LABS: ALT/SGPT 85 U/L (7.0-40); AST/SGOT 66 U/L (<34); CALCIUM LEVEL 10.3 MG/DL (8.3-10.6); CARBON DIOXIDE LEVEL 31 MMOL/L (20-31); CHLORIDE LEVEL 106 MMOL/L (98-107); CHOLESTEROL LEVEL 151 MG/DL (<200); CHOLESTEROL RISK RATIO 2.83 (<5); CREATININE FOR GFR 0.91 MG/DL (0.70-1.30); GLOMERULAR FILTRATION RATE > 90.0 (>49); LDL CHOLESTEROL 84.3 MG/DL (<100); NON-HDL-C 97.7 MG/DL; POTASSIUM SERUM 5.0 MMOL/L (3.5-5.1); SODIUM LEVEL 146 MMOL/L (136-145); TRIGLYCERIDES LEVEL 67 MG/DL (<150)
[2025-03-27 08:49] LABS: FREE T4 1.10 NG/DL (0.89-1.76)
[2025-03-27 09:18] LABS: ESTIMATED AVERAGE GLUCOSE 260.0 MG/DL (60-110)
[2025-03-29 13:45] LABS: PSA % FREE 71.0 % (calc) (>25); PSA FREE 0.5 ng/mL; PSA TOTAL 0.7 ng/mL (< OR = 4.0)
== END ==
LOC: M LAB 07:35
DX: I10 Essential (primary) hypertension (principal)

== ENCOUNTER → 2025-04-08 | Outpatient (CLI) | payer MEDICARE ==
[2025-04-08 08:03] LABS: CREATININE, URINE 99.3 MG/DL
[2025-04-08 08:04] LABS: MALB URINE SIEMENS < 3.0 MG/L
[2025-04-08 08:10] LABS: CALCIUM LEVEL 9.8 MG/DL (8.3-10.6); CARBON DIOXIDE LEVEL 31.0 MMOL/L (20-31); CHLORIDE LEVEL 101.0 MMOL/L (98-107); CREATININE FOR GFR 0.98 MG/DL (0.70-1.30); GLOMERULAR FILTRATION RATE 84.0 (>49); POTASSIUM SERUM 4.6 MMOL/L (3.5-5.1); SODIUM LEVEL 143.0 MMOL/L (136-145)
[2025-04-09 12:32] LABS: C-PEPTIDE 0.93 ng/mL (0.80-3.85)
== END ==
LOC: M LAB 06:52
PROVIDERS: ATTEND Nurse Practitioner Family
DX: E11.65 Type 2 diabetes mellitus with hyperglycemia (principal)

== ENCOUNTER → 2025-07-19 | Outpatient (CLI) | payer MEDICARE ==
[2025-07-19 07:44] LABS: PLATELET COUNT, AUTOMATED 175 10^3/uL (150-450)
[2025-07-19 08:14] LABS: ALT/SGPT 80 U/L (7.0-40); AST/SGOT 59 U/L (<34); CALCIUM LEVEL 9.9 MG/DL (8.3-10.6); CARBON DIOXIDE LEVEL 29 MMOL/L (20-31); CHLORIDE LEVEL 103 MMOL/L (98-107); CHOLESTEROL LEVEL 125 MG/DL (<200); CHOLESTEROL RISK RATIO 2.32 (<5); CREATININE FOR GFR 0.90 MG/DL (0.70-1.30); FREE T4 1.10 NG/DL (0.89-1.76); GLOMERULAR FILTRATION RATE > 90.0 (>49); LDL CHOLESTEROL 54.4 MG/DL (<100); NON-HDL-C 71.2 MG/DL; POTASSIUM SERUM 4.7 MMOL/L (3.5-5.1); SODIUM LEVEL 141 MMOL/L (136-145); TRIGLYCERIDES LEVEL 84 MG/DL (<150)
[2025-07-19 08:18] LABS: ESTIMATED AVERAGE GLUCOSE 200.0 MG/DL (60-110)
== END ==
LOC: M LAB 06:51
DX: I10 Essential (primary) hypertension (principal); E11.9 Type 2 diabetes mellitus without complications; E78.2 Mixed hyperlipidemia; R53.83 Other fatigue

== ENCOUNTER → 2025-07-19 | Outpatient (CLI) | payer MEDICARE ==
[2025-07-19 08:08] LABS: CHOLESTEROL LEVEL 126.0 MG/DL (<200); CHOLESTEROL RISK RATIO 2.34 (<5); LDL CHOLESTEROL 55.4 MG/DL (<100); NON-HDL-C 72.2 MG/DL; TRIGLYCERIDES LEVEL 84.0 MG/DL (<150)
== END ==
LOC: M LAB 07:18
PROVIDERS: ATTEND Nurse Practitioner Family
DX: E78.2 Mixed hyperlipidemia (principal)